=== PATIENT | female | born 1950 | race Caucasian/White ===

== ENCOUNTER 2020-08-19 10:46 | Emergency (ER) | payer MEDICARE, OTHER ==
[2020-08-19 10:58] VITALS: BP 153/66; PULSE 71
--- NOTE | 2020-08-19 11:24 | EDM.PDOC ---
ED HPI GENERAL MEDICAL PROBLEM - General Chief Complaint: Chest Pain Stated Complaint: CHEST PAIN AND UNDER ARM PAIN Time Seen by Provider: 08/19/20 11:03 Source of Information: Reports: Patient History Limitations: Reports: No Limitations - History of Present Illness INITIAL COMMENTS - FREE TEXT/NARRATIVE: 69-year-old female presents emergency department today with complaints of midsternal chest pain radiating to her bilateral shoulders. Patient states this started yesterday. She does not recall what she was doing when it started and it is a constant achiness. She states that she has had this happen in the past and it generally are the resolves. However, she states that it has not resolved since yesterday and she woke this morning still having the constant achiness. She denies any worsening chest pain with activity. She denies any diaphoresis, shortness of breath, nausea or vomiting. She has not had any fever chills or cough. She states that 2 days prior to waking up with the chest discomfort she has been out pulling weeds in the garden. She denies any history of heart attack or stroke. She states her primary care provider is Kate Solano. Middle Chest Pain Score (Numeric/FACES): 3 - Related Data Allergies Allergy/AdvReac Type Severity Reaction Status Date / Time Penicillins Allergy Severe Hives Verified 08/19/20 10:58 sulfamethoxazole Allergy Severe Hives Verified 08/19/20 10:58 [From Bactrim] trimethoprim [From Bactrim] Allergy Severe Hives Verified 08/19/20 10:58 Home Meds: Home Meds Escitalopram [Lexapro] 20 mg PO DAILY 01/21/14 [History] Latanoprost [Xalatan 0.005% Ophth Soln] 1 drop EYEBOTH BEDTIME 01/21/14 [History] atorvaSTATin [Lipitor] 40 mg PO DAILY 01/21/14 [History] buPROPion HCL [Wellbutrin SR] 150 mg PO DAILY 01/21/14 [History] lisinopriL [Prinivil] 20 mg PO DAILY 01/21/14 [History] Omeprazole 40 mg PO DAILY #30 cap.sr 09/05/14 [Rx] PARoxetine [Paxil] 20 mg PO DAILY 08/19/20 [History] Past Medical History HEENT History: Reports: Impaired Vision Cardiovascular History: Reports: High Cholesterol, Hypertension Psychiatric History: Reports: Anxiety, Depression Endocrine/Metabolic History: Reports: Obesity/BMI 30+ Social & Family History - Tobacco Use Tobacco Use Status *Q: Never Tobacco User - Caffeine Use Caffeine Use: Reports: Coffee, Soda - Recreational Drug Use Recreational Drug Use: No ED ROS GENERAL - Review of Systems Review Of Systems: Comprehensive ROS is negative, except as noted in HPI. ED EXAM, GENERAL - Physical Exam Exam: See Below Exam Limited By: No Limitations General Appearance: Alert, WD/WN, No Apparent Distress Ears: Normal External Exam, Hearing Grossly Normal Nose: Normal Inspection Throat/Mouth: Normal Inspection, Normal Lips, Normal Voice, No Airway Compromise Head: Atraumatic Neck: Normal Inspection, Supple, Non-Tender Respiratory/Chest: No Respiratory Distress, Lungs Clear, Normal Breath Sounds, No Accessory Muscle Use. No: Chest Non-Tender (Tender with palpation midsternal) Cardiovascular: Normal Peripheral Pulses, Regular Rate, Rhythm, No Edema, No Murmur Peripheral Pulses: 2+: Radial (L), Radial (R) GI/Abdominal: Normal Bowel Sounds, Soft, Non-Tender, No Distention (Female) Exam: Deferred Rectal (Female) Exam: Deferred Back Exam: Normal Inspection Extremities: Normal Inspection, Normal Range of Motion, No Pedal Edema Neurological: Alert, Oriented, Normal Cognition Psychiatric: Normal Affect, Normal Mood Skin Exam: Warm, Dry, Intact, Normal Color, No Rash Lymphatic: No Adenopathy #1 Interpretation EKG Date: 08/19/20 Time: 10:55 Rhythm: NSR Rate (Beats/Min): 69 Stanley: Normal P-Wave: Present QRS: Normal ST-T: Normal QT: Normal Comparison: NA - No Prior EKG EKG Interpretation Comments: Per Dr. Edge interpretation: Sinus rhythm at 70 bpm; early R wave transitionconsider RVH versus septal hypertrophy; biatrial hypertrophy Course - Vital Signs Text/Narrative:: Upon assessment, the patient complains of generalized achiness to her midsternal area. She states it radiates to her bilateral shoulders. It is not exacerbated by deep breath however palpation directly on her sternum she states makes it a little more pronounced. She states she took 2-81 mg baby aspirin this morning for the discomfort however they did not help at all. Again she has not had any associated symptoms with the chest discomfort. I have ordered labs to include a CBC, CMP, CRP, troponin and a magnesium level. I have also ordered an EKG and a portable view of the chest. Last Recorded V/S: Last Vital Signs Temp 97.9 F 08/19/20 10:55 Pulse 71 08/19/20 10:55 Resp 16 08/19/20 10:55 BP 153/66 H 08/19/20 10:55 Pulse Ox 97 08/19/20 10:55 - Orders/Labs/Meds Orders: Active Orders 24 hr Category Date Time Status EKG Documentation Completion [RC] STAT Care 08/19/20 11:12 Active Labs: Laboratory Tests 08/19/20 08/19/20 Range/Units 10:59 10:59 WBC 8.34 (3.98-10.04) K/mm3 RBC 4.88 (3.98-5.22) M/mm3 Hgb 14.4 (11.2-15.7) gm/dl Hct 42.7 (34.1-44.9) % MCV 87.5 (79.4-94.8) fl MCH 29.5 (25.6-32.2) pg MCHC 33.7 (32.2-35.5) g/dl RDW Std Deviation 42.2 (36.4-46.3) fL Plt Count 287 (182-369) K/mm3 MPV 9.8 (9.4-12.3) fl Neut % (Auto) 77.1 H (34.0-71.1) % Lymph % (Auto) 12.6 L (19.3-51.7) % Davie % (Auto) 8.5 (4.7-12.5) % Eos % (Auto) 1.2 (0.7-5.8) Baso % (Auto) 0.5 (0.1-1.2) % Neut # (Auto) 6.43 H (1.56-6.13) K/mm3 Lymph # (Auto) 1.05 L (1.18-3.74) K/mm3 Davie # (Auto) 0.71 H (0.24-0.36) K/mm3 Eos # (Auto) 0.10 (0.04-0.36) K/mm3 Baso # (Auto) 0.04 (0.01-0.08) K/mm3 Sodium 129 L (136-145) mEq/L Potassium 3.6 (3.5-5.1) mEq/L Chloride 96 L (98-107) mEq/L Carbon Dioxide 20 L (21-32) mEq/L Anion Gap 16.6 H (5-15) BUN 10 (7-18) mg/dL Creatinine 1.0 (0.55-1.02) mg/dL Est Cr Clr Drug Dosing 44.56 mL/min Estimated GFR (MDRD) 55 (>60) mL/min BUN/Creatinine Ratio 10.0 L (14-18) Glucose 111 H (70-99) mg/dL Calcium 8.5 (8.5-10.1) mg/dL Magnesium 2.0 (1.8-2.4) mg/dL Total Bilirubin 0.6 (0.2-1.0) mg/dL AST 22 (15-37) U/L ALT 27 (14-59) U/L Alkaline Phosphatase 58 (46-116) U/L Troponin I < 0.017 (0.00-0.056) ng/mL C-Reactive Protein 0.4 (<1.0) mg/dL Total Protein 6.9 (6.4-8.2) g/dl Albumin 3.6 (3.4-5.0) g/dl Globulin 3.3 gm/dL Albumin/Globulin Ratio 1.1 (1-2) Meds: Medications Discontinued Medications Generic Name Dose Route Start Last Admin Trade Name Freq PRN Reason Stop Dose Admin Ibuprofen 600 mg 08/19/20 12:35 08/19/20 12:43 Ibuprofen 600 Mg Tab PO 08/19/20 12:36 600 mg ONETIME ONE Administration - Re-Assessments/Exams Free Text/Narrative Re-Assessment/Exam: 08/19/20 12:34 Hematology reveals a WBC of 8.34, hemoglobin 14.4, hematocrit 42.7, platelet count 287 Chemistry reveals a sodium of 129, potassium 3.6, chloride 96, carbon dioxide 20, anion gap 16.6, BUN 10, creatinine 1.0, glucose 111, magnesium 2.0, troponin less than 0.017, C-reactive protein 0.4 08/19/20 12:34 Nothing acute is appreciated on portable view of the chest. Radiologist report is pending. 08/19/20 12:35 Patient's renal function is adequate at this time I feel that her discomfort is due to musculoskeletal origins. I have ordered for her to receive ibuprofen 600 mg x 1 dose. 08/19/20 12:57 Radiologist impression portable view of the chest: 1. Nothing acute is seen on portable chest x-ray. Patient will be discharged home with recommendations that she take Tylenol or ibuprofen per label directions and follow-up with her primary care provider in about a week. Departure - Departure Time of Disposition: 12:58 Disposition: Home, Self-Care 01 Condition: Good Clinical Impression: Atypical chest pain Instructions: Chest Wall Pain, [id number] Referrals: Kate Solano PA-C [Primary Care Provider] - Forms: ED Department Discharge Additional Instructions: You were seen in the emergency department today with complaints of chest pain along your sternum. Labs were completed which included a troponin level which tests for any strain on your heart. All lab work was essentially unremarkable. Your chest x-ray and EKG were also essentially unremarkable. Chest pain is likely due to strain in your chest wall and muscles. Recommend that you take Tylenol 650 mg every 4 hours as needed for discomfort. You were given 1 dose of ibuprofen in the emergency department however as we discussed it is not a good medication for you to be taking routinely due to the fact that our kidney fun ction decreases as we age. May use ice or heat for comfort. Recommend you rest for the next couple of days. Also recommend that you follow-up with your primary care provider in about a week for recheck of your symptoms. Should your condition worsen or change, do not hesitate returning to the emergency department. Sepsis Event Note (ED) - Evaluation Sepsis Screening Result: No Definite Risk - Focused Exam Vital Signs: Vital Signs Temp Pulse Resp BP Pulse Ox 08/19/20 10:55 97.9 F 71 16 153/66 H 97 - My Orders Last 24 Hours: My Active Orders 08/19/20 11:12 EKG Documentation Completion [RC] STAT - Assessment/Plan Last 24 Hours: My Active Orders 08/19/20 11:12 EKG Documentation Completion [RC] STAT
[2020-08-19] MEDS ORDERED: Ibuprofen 600 MG Tab PO ONE (12:35)
--- NOTE | 2020-08-19 12:56 | CR ---
Chest: Portable view of the chest was obtained. Comparison: Prior chest x-ray of 09/05/14. Heart size and mediastinum are within normal limits for portable technique. Lungs are clear with no acute parenchymal change. No acute osseous abnormality is appreciated. Impression: 1. Nothing acute is seen on portable chest x-ray. Diagnostic code #1
== END 2020-08-19 13:20 | disposition home or self-care (01) ==
LOC: JD.ED 10:46
DX: R07.89 Other chest pain (principal); E78.00 Pure hypercholesterolemia, unspecified; I10 Essential (primary) hypertension; E66.9 Obesity, unspecified; Z68.30 Body mass index [BMI] 30.0-30.9, adult; Z79.899 Other long term (current) drug therapy; Z88.0 Allergy status to penicillin; Z88.1 Allergy status to other antibiotic agents
CPT/HCPCS: 36415; 71045; 80053; 83735; 84484; 85025; 86140; 93005; 99285; A9270